=== PATIENT | male | born 1940 | race Caucasian/White ===

== ENCOUNTER → 2020-04-19 13:55 | Outpatient (CLI) | payer MEDICARE, OTHER, SELFPAY ==
[2020-04-20 21:38] LABS: COVID19 Sendout Not Detected (Not Detect)
== END ==
PROVIDERS: PCP Internal Medicine; Visit Provider Registered Nurse
DX: Z01.812 Encounter for preprocedural laboratory examination (principal)
CPT/HCPCS: 87635

== ENCOUNTER 2020-04-22 11:14 | Day surgery (SDC) | payer MEDICARE, OTHER, SELFPAY ==
[2020-04-18 08:39] VITALS: BMI 24.6
[2020-04-22] VITALS (11 sets, daily range): BP systolic 128–146; BP diastolic 66–84; PULSE 62–85; RESP 10–20; TEMP 35.8–36.8; O2SAT 98–100; BMI 24.0
--- NOTE | 2020-04-22 | DI.RAD.S_ITS ---
PROCEDURE: XR KNEE LT 1TO2V INDICATIONS: LEFT KNEE POST OP TECHNIQUE: 2 view(s) of the knee acquired. COMPARISON: None. FINDINGS: Bones: Patient is status post knee joint arthroplasty. Hardware components are in expected positions. Visualized bony structures are intact. Soft tissues: Overlying postoperative changes are noted. IMPRESSION: Post left total knee arthroplasty changes with anatomic left knee alignment. Dictated by: Farshad Mendoza M.D. on 04/22/2020 at 16:45 Approved by: Farshad Mendoza M.D. on 04/22/2020 at 16:45
[2020-04-22] MEDS: ACETAMINOPHEN 325 MG TABLET 975 MG PO (11:55)
[2020-04-22] MEDS: PREGABALIN 75 MG CAPSULE PO (11:55)
[2020-04-22] MEDS: CELECOXIB 200 MG CAPSULE PO (11:55)
[2020-04-22] MEDS: LACTATED RINGERS 1,000 ML 42 ML IV ×2 (11:59→15:12)
[2020-04-22] MEDS: VANCOMYCIN 1,000 MG/200 ML PIGGYBACK 200 MG IV (12:30)
--- NOTE | 2020-04-22 12:40 | PM.PREOP ---
Pre-operative Note COVID-19 COVID-19 status: Negative Result date/Date tested (Pos, Neg/Pending): 04/19/20 Interval Note History & Physical reviewed/Exam performed by Physician: Yes Changes to H&P: No
--- NOTE | 2020-04-22 13:47 | PM.OP.1 ---
Operative Date/Time/Diagnoses Date of procedure: 04/22/20 Time of procedure: 15:30 Pre-op diagnosis: Left knee osteoarthritis Post-op diagnosis: same Procedure & Clinicians Procedure: Left total knee replacement Same procedure as scheduled: Yes Indications: The patient has had progressively worsening left knee pain with radiographic changes consistent with arthritis. Non-operative management has failed and the patient has requested total knee replacement. The risks, benefits and alternatives to surgery were discussed with the patient prior to proceeding. Risks discussed included, but were not limited to, failure to relieve pain, stiffness, infection, nerve damage, deep venous thrombosis, pulmonary embolism, stroke, coma, heart attack, permanent paralysis and , as well as the potential need for eventual revision of the prosthetic. Surgeon: Baljit Correia Cash Posting Representative: Shay Potter Click Yes if Unassisted: No Anesthesia Type: General, Spinal and Local Operative Notes Findings: Significant tricompartmental osteoarthritis of the knee worst in the medial compartment. Closure Type: primary Specimen(s): none sent Prosthetic devices, grafts, tissues, transplants, or devices: Implants used in this procedure were manufactured by the [employer] and [employer] and included the BCS II Journey total knee replacement with a size 6 cobalt chromium femur, a size 6 non porous tibial base plate with a 9 mm cross-linked polyethylene tibial insert and a 35 mm oval Elizabeth II patellar component. Applied: implant(s) Estimated Blood Loss (mL): 25 Blood products transfused: none Tourniquet time (min): 53 Procedure in detail: The patient was seen in the pre-operative area, where the left knee was identified as the operative site and this was marked with my initials. The patient received pre-operative antibiotics, and was taken to the operating room and placed on the operative table in the supine position. After satisfactory anesthesia, a multimedia specialist out was performed. The left leg was encircled with a tourniquet about the proximal thigh, and the leg was prepared from the toes to the tourniquet with ChloroPrep in the usual fashion and draped through sterile drapes. The leg was elevated and exsanguinated with Eschmark bandage and the tourniquet inflated to 250 mmHg pressure. The knee was approached through an approximately 18 cm incision centered over the patella and carried into the knee through a medial parapatellar arthrotomy. The anterior osteophytes and soft tissues were removed. The rotational landmarks of [place]'s line and the transepicondylar axis were marked on the femur with electrocautery, and intramedullary guide holes for the femur and tibia were created. The distal femoral cut was made in 6 degrees of valgus using the intramedullary guide at the primary cut setting. The proximal tibial cut was then made using the intramedullary guide, taking 9 mm of bone off the less involved side. The extension gap was checked and the rotation of the femoral component confirmed with the gap balancing blocks. The anterior, posterior and chamfer cuts were then made. The posterior osteophytes and soft tissues were then removed. The posterior capsule was injected with part of a mixture of 60 ml 0.25% Marcaine mixed with 20 ml Exparel and 4 mg of morphine for post-operative pain control. The remainder of this mixture was injected into the capsule and subcutaneous tissues during cement curing. The tibia was prepared with the rotation set by an extra medullary guide. Trial tibial and femoral components were then placed and the intercondylar notch cut through the femoral trial. Range of motion was 0-135 degrees, with good stability throughout the range. The patella was then cut to accommodate the patellar prosthetic. There was no need for a lateral release. The trials were then removed, and the femoral hole plugged with a bone plug. The bone was prepared with pulsatile lavage, and dried with a sponge. Cement was applied and the final prosthetics placed. Excess cement was removed during and after cement curing. After confirming there was no extruded cement posteriorly, the final tibial insert was placed. The knee was copiously irrigated and the tourniquet deflated. Hemostasis was obtained. The capsule was closed with interrupted # 2 polyester sutures. The subcutaneous layer was closed with 3-0 Vicryl, and the skin with a running 3-0 V-Lock suture and Dermabond. An Aquacel Ag dressing was applied and the patient was taken to recovery having tolerated the procedure well. Complications: none Post-operative Condition: stable Disposition: PACU Plan for aftercare: The patient will be maintained on a standard total knee replacement protocol with weight bearing as tolerated. The patient will receive aspirin and sequential compression devices for DVT prophylaxis. The patient will be discharged home when safe for the home environment.
[2020-04-22] MEDS: TRANEXAMIC ACID 1,000 MG VIAL 1000 MG INJ ×2 (14:03→15:10)
--- NOTE | 2020-04-22 14:16 | SUR.OPER ---
Supine on padded OR bed. Pillow under head, arms secured on padded armboards <90 degree abduction. Safety belt across torso. Non-operative leg secured with tape over blanket over lower leg. Operative leg secured in DeMayo/Rajendra positioner. Foam padded brace at thigh of operative leg.
[2020-04-22] MEDS: BUPIVACAINE LIPOSOME 266 MG/20 ML VIAL INJ (14:26)
[2020-04-22] MEDS: BUPIVACAINE 0.25% W/ EPI 30 ML VIAL 60 ML INJ (14:26)
[2020-04-22] MEDS: LACTATED RINGERS 1,000 ML 100 ML IV (21:19)
[2020-04-22] MEDS: IBUPROFEN 400 MG TABLET PO (21:19)
[2020-04-22] MEDS: LOVASTATIN 20 MG TABLET 40 MG PO (21:20)
[2020-04-22] MEDS: ACETAMINOPHEN 325 MG TABLET 650 MG PO (21:20)
[2020-04-22] MEDS: dilTIAZem CD 240 MG CAP PO (21:45)
--- NOTE | 2020-04-22 23:23 | PC.NURSE ---
Pt to floor from PACU with sensation to knee; strong pedal pulse; ANDRES wrap intact, ice applied; RA; LS clear; pt denies pain, denies nausea; tolerating general diet; IV fluids infusing; pt requested Diltiazem at bedtime, MD informed of VS, affirms evening administration.
[2020-04-23] VITALS: BP 137/74; PULSE 109; RESP 16; TEMP 36.4; O2SAT 99
[2020-04-23] MEDS: IBUPROFEN 400 MG TABLET PO ×3 (00:59→09:17)
[2020-04-23 04:00] VITALS: BP 133/83; PULSE 104; RESP 16; TEMP 36.3; O2SAT 96
[2020-04-23] MEDS: PANTOPRAZOLE 20 MG TABLET PO (04:24)
[2020-04-23 07:01] LABS: Hematocrit 36.2 % (41-53); Hemoglobin 12.6 g/dL (13.5-17.5)
[2020-04-23 07:39] VITALS: BP 142/83; PULSE 106; RESP 18; TEMP 36.7; O2SAT 97
--- NOTE | 2020-04-23 07:48 | P.DS_ITS ---
History of Present Illness History of Present Illness Date Patient Seen: 04/23/20 Time Patient Seen: 07:48 Chief complaint: [id number] LEFT TKA *OPB* Narrative: The history and physical is contained in the chart previously completed note. Please refer to that note for this information. Discharge Providers Provider Discharge Date: 04/23/20 Primary care physician: Tadeo John MD Consults: 04/22/20 20:08 Consult to Discharge Planning Routine Comment: Consult to Physical Therapy Evaluate & Treat Comment: Physician Instructions: postop TKA protocol Discharge provider: Baljit Correia MD Summary Hospital Course Discharge Diagnosis: 1. Left knee osteoarthritis 2. Post hemorrhagic anemia Hospital Course: The patient was admitted to the hospital and taken directly to the operating room on April 22, 2020 for a left total knee replacement. He tolerated the procedure well and was comfortable on postoperative day 1. At the time of this dictation, it is anticipated that he will be ready to go home later today. Status at Discharge Cognitive/behavioral status at discharge: oriented Functional status at discharge: uses cane/walker Overall status at discharge: patient is progressing back to baseline Time Spent with Patient Time spent: Less than 30 minutes Exam Vital Signs (past 8 hours): - 04/23/20 00:00 04/23/20 04:00 04/23/20 07:39 Temperature 97.6 F 97.3 F L 98.1 F Pulse Rate 109 H 104 H 106 H Respiratory Rate 16 16 18 Blood Pressure 137/74 133/83 142/83 H Pulse Oximetry 99 96 97 Oxygen Delivery Method Room Air Oxygen Flow Rate 0 Narrative Exam Narrative: Left knee wound is dressed with no drainage on the bandage. The patient demonstrates flexion to beyond 100?. Calf is soft. Light touch and motion are intact in the left lower extremity. Objective Labs Result Diagrams: 04/23/20 06:41 Labs: Laboratory Results - last 24 hr 04/23/20 06:41 Hgb 12.6 L Hct 36.2 L Discharge Plan Discharge Plan Patient Disposition: Home Discharge Med Rec/Prescriptions Prescriptions: New acetaminophen 325 mg Tablet 650 mg PO TID 30 Days Qty: 180 RF: 0 ibuprofen 400 mg Tablet 400 mg PO Q4HR 30 Days RF: 0 oxycodone 5 mg Tablet 5 mg PO Q4H PRN (Reason: Pain, Moderate (4-6)) Qty: 40 RF: 0 Continued diltiazem HCl 240 MG capsule,extended release 24hr 240 mg PO QDAY Qty: 0 RF: 0 colchicine 0.6 MG capsule 0.6 mg PO QDAY PRN (Reason: Gout) Qty: 0 RF: 0 lovastatin 40 MG tablet 40 mg PO QPM Qty: 0 RF: 0 aspirin 325 MG tablet,delayed release (DR/EC) 325 mg PO QDAY Qty: 0 RF: 0 omeprazole magnesium [Prilosec OTC] 20 MG tablet,delayed release (DR/EC) 20 mg PO PRN PRN (Reason: Acid Reflux) Qty: 0 RF: 0 losartan-hydrochlorothiazide 100-25 mg Tablet 1 tab PO DAILY RF: 0 ferrous sulfate [Iron (ferrous sulfate)] 325 mg (65 mg iron) Tablet 325 mg PO DAILY RF: 0 Multi Complete with Iron 18-400 mg-mcg Tablet 1 tab PO DAILY RF: 0 Follow up/Referrals: Baljit Correia MD [Physician] - 2 Weeks Discharge Orders: Discharge (Order); Ordered 04/23/20 Ordered By: Baljit Correia Provider Discharge Instructions Diet: Diet as Tolerated and Regular Activity: You may bear weight as tolerated on your left leg. Cold/Heat Therapy: Apply ice for 15 minutes of every hour as needed for pain control. Skin/Wound/Dressing Care Report to your healthcare provider any signs of infection, such as:: chills, fever, night sweats, increased pain, unusual drainage and unusual redness Dressing: You may remove the Finesse wrap on postoperative day 3. You may then show er normally with the deeper dressing in place. If the central strip of the deeper dressing becomes saturated with either water or blood, please call the office to have it evaluated. Visit Report/Discharge Packet Instructions: DI for Knee Replacement Stand Alone Forms: Surgery Discharge Discharge Data Primary Care Provider: Tadeo John V Attending Provider: Baljit Correia
[2020-04-23] MEDS: MULTIVITAMIN 1 TABLET 1 TAB PO (08:02)
[2020-04-23] MEDS: hydroCHLOROthiazide 25 MG TABLET PO (08:03)
[2020-04-23] MEDS: LOSARTAN 50 MG TABLET 100 MG PO (08:03)
[2020-04-23] MEDS: ASPIRIN EC 325 MG TABLET PO (08:03)
[2020-04-23] MEDS: dilTIAZem CD 240 MG CAP PO (08:05)
[2020-04-23] MEDS: ACETAMINOPHEN 325 MG TABLET 650 MG PO (08:05)
--- NOTE | 2020-04-23 09:02 | CM.DANOTE ---
DCP: Case received, EMR reviewed and met with patient. Introduced self and role. Was able to meet with patient and obtain information regarding baseline activity level and living situation, prior to surgery. DCP assessment completed with information currently available. Patient is a 79 year old male who admitted yesterday morning to the care of the surgical team. PCP: Dr. John. Payer: confirmed: Medicare. Patient came to the hospital for a surgical procedure. He had a left total knee replacement. Met with patient in his room. He was sitting up in his chair next to his bed, alert and oriented, pleasant demeanor. Confirmed with patient that he resides with his spouse, Lesly, in [facility]. He is independent, but had gotten a walker to prepare for home. He has history of osteoarthritis in his left knee. P: Patient has discharge orders to go home, but he will be working with P.TBruce first. Francisca Kim RN/Public Service Representative
--- NOTE | 2020-04-23 09:21 | PT.IIE ---
Current Diagnoses Unilateral primary osteoarthritis, left knee (04/22/20) Surgery Performed Operation Date: 04/22/20 13:15 Actual Procedures p Total Knee Arthroplasty(Left) - Baljit Correia MD Surgical History (Last Updated 04/18/20 @ 08:43 by Jeny Blackwood, RN) Hx of cystoscopy (Acute 04/02/17) Hx of heart artery stent (Acute 1999) Hx of inguinal hernia repair (Acute) Medical History (Last Updated 04/18/20 @ 08:43 by Jeny Blackwood RN) Acid reflux (Acute) CAD (coronary artery disease) (Acute) HLD (hyperlipidemia) (Acute) HTN (hypertension) (Acute) Renal calculi (Acute) Physical Therapy Inpatient Evaluation/Re-Eval M1 PT/OT-IP Prior Functional Status Start: 04/23/20 08:21 Freq: NEEDED Status: Active Protocol: Document 04/23/20 09:04 AW (Rec: 04/23/20 09:21 AW [email or web address]) Medical Review Prior Functional Status Medical History Reviewed Yes Diet/Fluid Consistency Regular Communication WNL Mobility and Gait Independent with all mobility. Pt admits to limiting ambulation recently due to pain but he continues to cycle using an e-bike ~60 miles per week. Activities of Daily Living and IADL's Independent Social History Household Members spouse Living Arrangements House Number of Floors (Floors) Two Floors Number of Stairs To Enter/Railing? 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 M2 PT-IP Current Condition Start: 04/23/20 08:21 Freq: NEEDED Status: Active Protocol: Document 04/23/20 09:04 AW (Rec: 04/23/20 09:21 AW [email or web address]) Physical Therapy Current Condition Current Condition Evaluation Date 04/23/20 Treatment Diagnosis s/p L TKA; difficulty in walking Onset Date 04/22/20 Weight Bearing Status Weight Bearing Status Weight Bear as Tolerated M3 PT-IP Subjective Start: 04/23/20 08:21 Freq: NEEDED Status: Active Protocol: Document 04/23/20 09:04 AW (Rec: 04/23/20 09:21 AW [email or web address]) Subjective Physical Therapy Visit Type Type Initial Evaluation Visit Start Time 08:39 Visit Stop Time 08:58 Total Visit Minutes 19 Number of EQUAL EMPLOYMENT OPPORTUNITY OFFICER Visits 0 Physical Therapy Visit Comments Patient Comments Pt willing to work with PT Patient Goals Pt hopes to return home today Therapy Pain Assessment Pain When Pain Assessed During Mobility Pain Present Pain Present Pain Reported Location left knee Intensity 2 Scale Used Numeric (1 - 10) Pain Management Techniques Apply Cold,Timing of Activity with Medications M4 PT-IP Mobility and Gait Start: 04/23/20 08:21 Freq: NEEDED Status: Active Protocol: Document 04/23/20 09:04 AW (Rec: 04/23/20 09:21 AW [email or web address]) PT-Bed Mobility Assessment Supine to Sit Supine to Sit Standby Assistance Sit to Supine Sit to Supine Standby Assistance Scooting Scooting to Edge of Bed Independent PT-Transfer Assessment Sit to and From Stand Sit to and from Stand Standby Assistance Equipment Transfer Assistive Device Gait Belt,Front Wheeled Walker Orthotic/Prosthetic Devices or Brace: No Transfers Transfer Destination Bed,Chair Transfer Technique pt ambulated with FWW Transfer Ability Level of Assist Standby Assistance Comments Mobility Comments Pt sitting up in chair upon PT arrival. He stood from the chair with good mechanics and safety awareness SBA and walked in the halls for gait assessment. Upon return to the room, he transferred to and from the bed, using his right leg to lift his operative leg SBA. He then transferred back to the chair using FWW SBA where he was positioned with call light and all needs within reach. Gait Assessment Gait Gait Assistance Required: Standby Assistance,Contact Guard Assist Distance (Feet) 150 Assistive Devices Assistive Device Gait Belt,Front Wheeled Walker Gait Deviations General Gait Pattern Antalgic,Decreased Stride Length,Decreased Feet Clearance,Flexed Trunk,Step-to Gait Factors Limiting Gait Function Factors Limiting Gait Function Decreased Activity Tolerance, Decreased Strength,Limited Range of Motion,Pain,Poor Balance Comments Gait Comments Pt reports history of damaage to S1 nerve root resulting in atrophy of plantar flexors. Gait was characterized by turned out left foot and lack of heel strike bilaterally. Pt was able to correct heel strike in response to cues. He also tended to lean forward with the walker too far in front but was able to correct his posture in response to cueing Keep your shoulders over your hands and squeeze your glutes. Stair Climbing Assessment Evaluation Level of Assist On Stairs Standby Assistance Devices Stair Climbing Assistive Devices Left Railing,Right Railing Technique/Endurance Stair Climbing Direction Ascend and Descend Stair Climbing Technique Step to Step Number of Steps Climbed 3 Query Text: Stair Climbing Set # Repetitions (reps) 2 PT-Balance Assessment Sitting Balance and Reactions Static Sitting Balance Ability Normal Dynamic Sitting Balance Ability Normal Standing Balance and Reactions Static Standing Balance Ability Good Dynamic Standing Balance Ability Good Device Used FWW M5 PT-IP Objective Assessments Start: 04/23/20 08:21 Freq: NEEDED Status: Active Protocol: Document 04/23/20 09:04 AW (Rec: 04/23/20 09:21 AW [email or web address]) Orientation Orientation/Cognition Level of Alertness Alert Orientation Name,Day of Week,Place, Situation Language Function Ability No Deficits Noted Safety Awareness Understands Safety Issues Memory Description No Deficits Noted Gross Range of Motion Lower Extremity ROM Assessment Left Impaired Impairments Flexion contracture of left knee - lacking ~5 degrees extension Strength Lower Extremity Strength Assessment Left Impaired Comments Strength Comments RLE grossly 5/5; left ankle 3/ 5 plantar flexion Coordination Assessment Gross Coordination Gross Coordination WNL Sensation Assessment Sensation Gross Sensation Left LE Impaired Sensation Description Numbness Comments Sensation Comments Pt reports numbness around left knee with sensation gradually returning. Muscle Tone Muscle Tone WNL Yes M6 PT-IP Treatment Start: 04/23/20 08:21 Freq: NEEDED Status: Active Protocol: Document 04/23/20 09:04 AW (Rec: 04/23/20 09:21 AW [email or web address]) Physical Therapy Treatment Exercises Exercises Ankle Pumps,Quad Sets,Heel Slides,Passive Knee Extension Hang Education Education Provided Precautions,Weight Bearing Status,Post-Op Packet,Safety Other Treatments Other Treatment Performed Provided education on role of PT, plan of care, weightbearing status, and rationale for using FWW full- time until seen by PT or ortho . M7 PT-IP Assessment and Plan Start: 04/23/20 08:21 Freq: NEEDED Status: Active Protocol: Document 04/23/20 09:04 AW (Rec: 04/23/20 09:21 AW [email or web address]) PT Summary Assessment and Plan Potential Rehabilitation Potential Excellent Status of Condition at Evaluation Stable Summary Impairments Pain,ROM,Strength,Balance, Sensation,Bed Mobility, Transfers,Gait,Activity Tolerance Progress Towards Goals Safe For Discharge Assessment Summary Rakan is a 79 yo man seen for PT evaluation on POD1 following L TKA. He is an independent community ambulator at baseline and remains active with cycling. He required SBA for most mobility during evaluation which his will be able to provide at home. Pt was encouraged to continue performing post-op exercises twice daily until seen by outpatient PT. PT deems him safe for discharge with spousal support and OP PT once medically cleared. Frequency of Treatment Frequency Of Treatment Discharge Recommendations To Nursing Amount of Assist Needed Standby Assistance Discharge Recommendations PT Discharge Recommendations Home with Assistance, Outpatient PT Transportation Needs at Discharge Private Vehicle
--- NOTE | 2020-04-23 11:08 | PC.NURSE ---
Patient alert, oriented, denies need for narcotic pain medication, took scheduled tylenol and ibuprofen. Patient worked with therapy. Went over dc meds and instructions with patient, questions answered. RX for oxycodone givento patient. Patient taken via wc to vehicle driven by spouse. Patient had all belongings.
== END 2020-04-23 11:16 | disposition home or self-care (01) ==
LOC: OR 11:17 → AC 11:17
PROVIDERS: PCP Internal Medicine; Referring Provider Orthopaedic Surgery; Visit Provider Orthopaedic Surgery
PROC: 0SRD0JZ Replacement of Left Knee Joint with Synthetic Substitute, Open Approach (ICD-10-PCS; CPT 27447; principal; 2020-04-22 13:15)
DX: M17.12 Unilateral primary osteoarthritis, left knee (principal); I10 Essential (primary) hypertension
CPT/HCPCS: 27447; 36415; 73560; 85014; 85018; 97161; C1776; C9290; J1100; J2250; J2274; J2405; J2704; J3010

== ENCOUNTER → 2021-01-07 18:48 | Outpatient (ROUT) | payer MEDICARE, OTHER, SELFPAY ==
[2020-04-22 16:18] VITALS: BMI 24.0
[2021-01-07 19:04] LABS: HEMOLYSIS < 15 (0-50); Iron 148 ug/dL (49-181)
[2021-01-07 19:05] LABS: Add Manual Diff / Slide Review NO; Basophils Absolute Auto 0 /uL (0-100); Basophils Percent Auto 0.9 % (0-2); Eosinophils Absolute Auto 200 /uL (0-450); Eosinophils Percent Auto 4.5 % (2-4); Hematocrit 40.5 % (41-53); Hemoglobin 13.9 g/dL (13.5-17.5); Lymphocytes Absolute Auto 1300 /uL (1100-4500); Lymphocytes Percent Auto 24.7 % (25-40); Mean Corpuscular HGB Conc 34.3 % (30-36); Mean Corpuscular Hemoglobin 31.7 PG (26-34); Mean Corpuscular Volume 92.3 fL (80-100); Monocytes Absolute Auto 400 /uL (0-900); Monocytes Percent Auto 8.4 % (3-14); Neutrophils Absolute Auto 3200 /uL (1500-7000); Neutrophils Percent Auto 61.5 % (50-75); Platelet Count 258 X10^3/uL (150-400); Red Blood Cell Count 4.39 X10^6/uL (4.5-5.9); White Blood Cell Count 5.2 X10^3/uL (4.5-11.0)
[2021-01-07 19:07] LABS: Alanine Aminotransferase 18 IU/L (<50); Albumin 4.3 g/dL (3.5-5.0); Albumin Globulin Ratio 1.7 (1.0-2.8); Alkaline Phosphatase 70 U/L (38-126); Aspartate Aminotransferase 24 IU/L (17-59); Bilirubin Total 0.3 mg/dL (0.2-1.3); Blood Urea Nitrogen 24 mg/dL (9-20); Calcium 9.3 mg/dL (8.4-10.2); Carbon Dioxide 31 mmol/L (22-32); Chloride 101 mmol/L (98-107); Cholesterol 190 mg/dL (140-199); Estimated Glomerular Filt Rate 58.3 mL/min (>60); Globulin 2.6 g/dL (1.7-4.1); Glucose 97 mg/dL (80-110); HDL Cholesterol 74 mg/dL (40-60); HEMOLYSIS < 15 (0-50); LDL Cholesterol Calculated 89 mg/dL (<100); Potassium 4.3 mmol/L (3.4-5.1); Sodium 135 mmol/L (137-145); Total Protein 6.9 g/dL (6.3-8.2); Triglycerides 134 mg/dL (35-150); Uric Acid 6.4 mg/dL (3.5-8.5)
[2021-01-07 19:15] LABS: Percent Iron Saturation 38 % (20-50); Total Iron Binding Capacity 391 ug/dL (261-462); Transferrin 306 mg/dL (206-381)
[2021-01-07 19:40] LABS: Ferritin 21 ng/mL (18-464)
== END ==
PROVIDERS: PCP Internal Medicine; Visit Provider Internal Medicine
DX: I25.10 Atherosclerotic heart disease of native coronary artery without angina pectoris (principal); D64.9 Anemia, unspecified; E78.2 Mixed hyperlipidemia; M10.9 Gout, unspecified
CPT/HCPCS: 80053; 80061; 82728; 83540; 83550; 84550; 85025

== ENCOUNTER → 2021-02-12 19:00 | Outpatient (ROUT) | payer MEDICARE, OTHER, SELFPAY ==
[2020-04-22 16:18] VITALS: BMI 24.0
[2021-02-12 20:26] LABS: Prostate Specific Antigen 0.714 ng/mL (0.10-4.00)
[2021-02-12 20:29] LABS: Testosterone 449 ng/dL (71.8-623)
== END ==
PROVIDERS: PCP Internal Medicine; Visit Provider Internal Medicine
DX: E29.1 Testicular hypofunction (principal); N40.1 Benign prostatic hyperplasia with lower urinary tract symptoms
CPT/HCPCS: 84153; 84403

== ENCOUNTER → 2022-08-26 15:57 | Outpatient (CLI) | payer OTHER, SELFPAY ==
[2020-04-22 16:18] VITALS: BMI 24.0
[2022-08-26 17:04] LABS: Hematocrit 40.4 % (41-53); Hemoglobin 13.5 g/dL (13.5-17.5); Mean Corpuscular HGB Conc 33.4 % (30-36); Mean Corpuscular Volume 92.8 fL (80-100); Platelet Count 241 X10^3/uL (150-400); Red Blood Cell Count 4.35 X10^6/uL (4.5-5.9); Red Cell Distribution Width 13.5 % (11.6-14.8); White Blood Cell Count 6.6 X10^3/uL (4.5-11.0)
[2022-08-26 17:17] LABS: Alanine Aminotransferase 23 IU/L (<50); Albumin 4.3 g/dL (3.5-5.0); Albumin Globulin Ratio 1.6 (1.0-2.8); Alkaline Phosphatase 50 U/L (38-126); Aspartate Aminotransferase 25 IU/L (17-59); BUN Creatinine Ratio 17.4 (6-22); Bilirubin Total 0.5 mg/dL (0.2-1.3); Blood Urea Nitrogen 21 mg/dL (9-20); Calcium 9.9 mg/dL (8.4-10.2); Carbon Dioxide 28 mmol/L (22-32); Chloride 102 mmol/L (98-107); Cholesterol 181 mg/dL (140-199); Estimated Glomerular Filt Rate 60 mL/min (>60); Globulin 2.7 g/dL (1.7-4.1); Glucose 98 mg/dL (80-110); HDL Cholesterol 58 mg/dL (40-60); HEMOLYSIS < 15 (0-50); LDL Cholesterol Calculated 104 mg/dL (<100); Potassium 4.3 mmol/L (3.4-5.1); Sodium 139 mmol/L (137-145); Triglycerides 95 mg/dL (35-150)
[2022-08-26 17:45] LABS: TSH w/ Reflex to FT4 1.35 uIU/mL (0.47-4.68)
== END ==
PROVIDERS: PCP Internal Medicine; Referring Provider Internal Medicine; Visit Provider Internal Medicine
DX: I49.3 Ventricular premature depolarization (principal); E78.2 Mixed hyperlipidemia; I10 Essential (primary) hypertension; I25.10 Atherosclerotic heart disease of native coronary artery without angina pectoris
CPT/HCPCS: 36415; 80053; 80061; 84443; 85027

== ENCOUNTER → 2023-05-24 16:19 | Outpatient (CLI) | payer MEDICARE, SELFPAY ==
[2020-04-22 16:18] VITALS: BMI 24.0
[2023-05-24 17:46] LABS: Hematocrit 39.9 % (41-53); Hemoglobin 13.6 g/dL (13.5-17.5); Mean Corpuscular HGB Conc 34.1 % (30-36); Mean Corpuscular Hemoglobin 31.4 PG (26-34); Platelet Count 247 X10^3/uL (150-400); Red Blood Cell Count 4.34 X10^6/uL (4.5-5.9); Red Cell Distribution Width 12.9 % (11.6-14.8); White Blood Cell Count 6.9 X10^3/uL (4.5-11.0)
[2023-05-24 18:21] LABS: Alanine Aminotransferase 20 IU/L (<50); Albumin 4.1 g/dL (3.5-5.0); Albumin Globulin Ratio 1.5 (1.0-2.8); Alkaline Phosphatase 63 U/L (38-126); Aspartate Aminotransferase 22 IU/L (17-59); BUN Creatinine Ratio 19.4 (6-22); Bilirubin Total 0.5 mg/dL (0.2-1.3); Blood Urea Nitrogen 28 mg/dL (9-20); Calcium 8.9 mg/dL (8.4-10.2); Carbon Dioxide 26 mmol/L (22-32); Chloride 102 mmol/L (98-107); Cholesterol 164 mg/dL (140-199); Estimated Glomerular Filt Rate 49 mL/min (>60); Globulin 2.8 g/dL (1.7-4.1); Glucose 90 mg/dL (80-110); HDL Cholesterol 56 mg/dL (40-60); HEMOLYSIS < 15 (0-50); LDL Cholesterol Calculated 84 mg/dL (<100); Potassium 4.1 mmol/L (3.4-5.1); Sodium 136 mmol/L (137-145); Total Protein 6.9 g/dL (6.3-8.2); Triglycerides 120 mg/dL (35-150)
== END ==
PROVIDERS: PCP Internal Medicine; Referring Provider Internal Medicine; Visit Provider Internal Medicine
DX: I10 Essential (primary) hypertension (principal); E78.2 Mixed hyperlipidemia; I25.10 Atherosclerotic heart disease of native coronary artery without angina pectoris
CPT/HCPCS: 36415; 80053; 80061; 85027

== ENCOUNTER → 2024-12-21 14:36 | Outpatient (CLI) | payer MEDICARE, SELFPAY ==
[2020-04-22 16:18] VITALS: BMI 24.0
--- NOTE | 2024-12-21 14:38 | DI.RAD.S_ITS ---
PROCEDURE: XR HAND LT MIN 3V INDICATIONS: swelling/pain TECHNIQUE: 3 views of the hand(s) acquired. COMPARISON: None. FINDINGS: Bones: No osseous abnormality. Joints: Severe distal radioulnar, radiocarpal, STT and 1st CMC degenerative change noted. There is also severe degeneration in all MCP and interphalangeal joints. Large periarticular calcifications are present in the 3rd DIP and the 5th PIP. Soft tissues: Mild diffuse soft swelling noted. TFC calcification noted IMPRESSION: Severe multilevel degeneration. Periarticular calcifications in the 3rd DIP and 5th DIP are often seen with gout. Please correlate with uric acid and other inflammatory serologies Dictated by: Aashish Cox M.D. on 12/22/2024 at 12:29 Approved by: Aashish Cox M.D. on 12/22/2024 at 12:32
--- NOTE | 2024-12-21 14:38 | DI.RAD.S_ITS ---
PROCEDURE: XR HAND RT MIN 3V INDICATIONS: swelling to thumb/1st digit pip, pain distal tips TECHNIQUE: 3 views of the hand(s) acquired. COMPARISON: None. FINDINGS: Bones: No osseous abnormality. Joints: Moderate scapholunate dissociation appreciated. There is moderate degeneration in the radiocarpal , STT and distal radioulnar joint. Severe degeneration also seen in the 1st CMC 1st MCP and all interphalangeal joints. Soft tissues: Moderate diffuse soft swelling noted more prominent the 2nd digit. IMPRESSION: Multilevel degeneration Scapholunate dissociation Dictated by: Aashish Cox M.D. on 12/22/2024 at 12:23 Approved by: Aashish Cox M.D. on 12/22/2024 at 12:25
[2024-12-21 15:39] LABS: Add Manual Diff / Slide Review NO; Basophils Absolute Auto 100 /uL (0-100); Basophils Percent Auto 0.9 % (0-2); Eosinophils Absolute Auto 200 /uL (0-450); Eosinophils Percent Auto 2.8 % (2-4); Hematocrit 38.5 % (41-53); Lymphocytes Absolute Auto 1700 /uL (1100-4500); Lymphocytes Percent Auto 19.5 % (25-40); Mean Corpuscular HGB Conc 33.8 % (30-36); Mean Corpuscular Hemoglobin 29.7 PG (26-34); Mean Corpuscular Volume 87.9 fL (80-100); Monocytes Absolute Auto 600 /uL (0-900); Monocytes Percent Auto 6.7 % (3-14); Neutrophils Absolute Auto 6000 /uL (1500-7000); Neutrophils Percent Auto 70.1 % (50-75); Platelet Count 373 X10^3/uL (150-400); Red Blood Cell Count 4.38 X10^6/uL (4.5-5.9); Red Cell Distribution Width 13.7 % (11.6-14.8); White Blood Cell Count 8.5 X10^3/uL (4.5-11.0)
[2024-12-21 15:54] LABS: Alanine Aminotransferase 21 IU/L (<50); Albumin 4.3 g/dL (3.5-5.0); Albumin Globulin Ratio 1.7 (1.0-2.8); Alkaline Phosphatase 72 U/L (38-126); Aspartate Aminotransferase 24 IU/L (17-59); BUN Creatinine Ratio 23.1 (6-22); Bilirubin Total 0.4 mg/dL (0.2-1.3); Blood Urea Nitrogen 31 mg/dL (9-20); Calcium 9.3 mg/dL (8.4-10.2); Carbon Dioxide 26 mmol/L (22-32); Chloride 100 mmol/L (98-107); Estimated Glomerular Filt Rate 52 mL/min (>60); Globulin 2.6 g/dL (1.7-4.1); Glucose 96 mg/dL (80-110); HEMOLYSIS < 15 (0-50); Potassium 4.7 mmol/L (3.4-5.1); Sodium 135 mmol/L (137-145); Total Protein 6.9 g/dL (6.3-8.2); Uric Acid 7.3 mg/dL (3.5-8.5)
[2024-12-21 16:43] LABS: Erythrocyte Sedimentation Rate 51 MM/HR (0-15)
== END ==
PROVIDERS: PCP Internal Medicine; Referring Provider Physician Assistant; Visit Provider Physician Assistant
DX: M18.11 Unilateral primary osteoarthritis of first carpometacarpal joint, right hand (principal); M19.042 Primary osteoarthritis, left hand; M19.041 Primary osteoarthritis, right hand; M19.032 Primary osteoarthritis, left wrist; M19.031 Primary osteoarthritis, right wrist; M25.40 Effusion, unspecified joint
CPT/HCPCS: 36415; 73130; 80053; 84550; 85025; 85651

== ENCOUNTER → 2025-05-30 11:58 | Outpatient (CLI) | payer MEDICARE, SELFPAY ==
[2020-04-22 16:18] VITALS: BMI 24.0
[2025-05-30 12:32] LABS: Hematocrit 32.5 % (41-53); Hemoglobin 11.0 g/dL (13.5-17.5); Mean Corpuscular HGB Conc 33.8 % (30-36); Mean Corpuscular Hemoglobin 29.2 PG (26-34); Mean Corpuscular Volume 86.5 fL (80-100); Platelet Count 444 X10^3/uL (150-400)
[2025-05-30 12:51] LABS: Alanine Aminotransferase 23 IU/L (<50); Albumin 3.8 g/dL (3.5-5.0); Albumin Globulin Ratio 1.4 (1.0-2.8); Alkaline Phosphatase 69 U/L (38-126); Blood Urea Nitrogen 32 mg/dL (9-20); Calcium 9.6 mg/dL (8.4-10.2); Carbon Dioxide 27 mmol/L (22-32); Chloride 102 mmol/L (98-107); Cholesterol 149 mg/dL (140-199); Estimated Glomerular Filt Rate 59 mL/min (>60); Globulin 2.7 g/dL (1.7-4.1); Glucose 91 mg/dL (70-99); HDL Cholesterol 58 mg/dL (40-60); HEMOLYSIS < 15 (0-50); Potassium 4.3 mmol/L (3.4-5.1); Sodium 135 mmol/L (137-145); Total Protein 6.5 g/dL (6.3-8.2); Triglycerides 127 mg/dL (35-150)
[2025-05-30 13:21] LABS: Prostate Specific Antigen 1.13 ng/mL (0.10-4.00)
== END ==
PROVIDERS: PCP Internal Medicine; Referring Provider Internal Medicine; Visit Provider Internal Medicine
DX: I25.10 Atherosclerotic heart disease of native coronary artery without angina pectoris (principal); N40.1 Benign prostatic hyperplasia with lower urinary tract symptoms; E78.2 Mixed hyperlipidemia; N18.31 Chronic kidney disease, stage 3a; N13.8 Other obstructive and reflux uropathy
CPT/HCPCS: 36415; 80053; 80061; 84153; 85027